=== PATIENT | female | born 1955 | race Caucasian/White ===

== ENCOUNTER → 2017-04-20 | Outpatient (CLI) | payer OTHER | END | disposition home or self-care (01) | LOC: RAD.S 15:50 | DX: R05 Cough (principal); J32.3 Chronic sphenoidal sinusitis; J32.2 Chronic ethmoidal sinusitis; J34.2 Deviated nasal septum; K76.0 Fatty (change of) liver, not elsewhere classified; J47.9 Bronchiectasis, uncomplicated; M47.894 Other spondylosis, thoracic region; J98.11 Atelectasis ==